=== PATIENT | male | born 1960 | race Caucasian/White ===

== ENCOUNTER 2016-08-11 08:59 | Observation (INO) | payer MEDICARE, OTHER ==
[~2016-08-11] VITALS: Ht 182.9 cm; Wt 90.0 kg
[~2016-08-11 08:59] MED LIST: FURO-110 PO
[2016-08-11 09:07] VITALS: Ht 182.9 cm; Wt 90.0 kg
[2016-08-11] MEDS ORDERED: NITROGLYCERIN 2% 1 GM OINT PKT TD STA (09:09)
[2016-08-11 09:55] LABS: ADD SCAN DIFF NO
[2016-08-11 09:57] LABS: BASOPHIL # 0.1 10^3/ul (0.0-0.1); BASOPHILS % 1.3 % (0.0-2.0); EOSINOPHILS # 0.5 10^3/ul (0.0-0.5); EOSINOPHILS % 7.7 % (0.0-7.0); HEMATOCRIT 48.7 % (42.0-52.0); HEMOGLOBIN 16.3 g/dl (14.0-18.0); LYMPHOCYTES # 1.9 10^3/ul (0.8-2.9); LYMPHOCYTES % 28.6 % (15.0-51.0); MEAN CORPUSCULAR HEMOGLOBIN 29.5 pg (29.0-33.0); MEAN CORPUSCULAR HGB CONC 33.5 g/dl (32.0-37.0); MEAN CORPUSCULAR VOLUME 88.1 fl (82.0-101.0); MEAN PLATELET VOLUME 9.9 fl (7.4-10.4); MONOCYTE # 0.6 10^3/ul (0.3-0.9); MONOCYTES % 9.5 % (0.0-11.0); NEUTROPHIL # 3.5 10^3/ul (1.6-7.5); NEUTROPHILS % 52.2 % (39.0-77.0); PLATELET COUNT 227 10^3/UL (140-415); RED BLOOD COUNT 5.53 10^6/ul (4.70-6.10); RED CELL DISTRIBUTION WIDTH 12.9 % (11.5-14.5); WHITE BLOOD COUNT 6.7 10^3/ul (4.8-10.8)
--- NOTE | 2016-08-11 10:10 | RADRPT ---
PROCEDURE: XR Chest. CLINICAL INDICATION: Chest pain TECHNIQUE: Chest AP portable. COMPARISON: 09/20/2015 FINDINGS: The mediastinal structures are unremarkable. The heart is normal in size and configuration. The pu lmonary vascularity is normal. The lung mello are unremarkable. No consolidation is identified. The pleural spaces are unremarkable. The axial skeleton is unremarkable. IMPRESSION: No active intrathoracic disease. RPTAT: HGDB .Yimi Blum MD, MD Date Time Electronically viewed and signed by .Yimi Blum MD, on 08/11/2016 10:10 .B/
[2016-08-11 10:15] LABS: CHLORIDE 102 mmol/L (97-110); SODIUM 139 mmol/L (135-144)
[2016-08-11 10:16] LABS: POTASSIUM 4.1 mmol/L (3.5-5.1)
[2016-08-11 10:19] LABS: ANION GAP 13 (8-16); BLOOD UREA NITROGEN 12 mg/dl (7-20); CARBON DIOXIDE 28 mmol/L (21-31); GLUCOSE 281 mg/dl (70-220)
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
[2016-08-11 10:37] LABS: PARTIAL THROMBOPLASTIN TIME 24.9 Sec (25.0-35.0); PROTIME 13.2 Sec (12.2-14.2)
[2016-08-11 10:43] LABS: TROPONIN-I < 0.012 ng/ml (0.00-0.12)
[2016-08-11] MEDS ORDERED: ACETAMINOPHEN 325 MG TAB PO PRN (11:30)
[2016-08-11] MEDS ORDERED: ONDANSETRON 4 MG INJ IV PRN (11:30)
--- NOTE | 2016-08-11 14:49 | HP ---
Date/Time of Note Date/Time of Note DATE: 08/11/16 TIME: 14:44 Assessment/Plan VTE Prophylaxis VTE Prophylaxis Intervention: LMWH Lines/Catheters IV Catheter Type (from Nrs): Peripheral IV Assessment/Plan Assessment/Plan 55-year-old homeless male with the followin. Chest pain rule out acute coronary syndrome 2. Hyperglycemia rule out type 2 diabetes 3. Chronic tobacco abuse Plan: Telemetry admission, trend cardiac enzymes, 2d echo if none recently and possible cardiology consult for stress test. oxygen and nitroglycerin therapy as needed. Daily plavix 2/2 asa allergy Get lipid profile, magnesium and TSH levels in am. Further interventions per clinical course We will will also provide supportive care. Prophylaxis: Lovenox, PPI. HPI/ROS Admit Date/Time Admit Date/Time 08/11/16 Hx of Present Illness PRESENTING COMPLAINT: chest pain HISTORY OF PRESENTING COMPLAINT: This is a 55-year-old male who presents to emergency room with complaints of chest pain, shortness of breath and generalized body shakes. Patient states symptoms have been going on for just about a day. Patient of note is homeless. Patient states symptoms improved with medications given in the ER. He denies cough. Patient states chest pain radiates to his left shoulder. He denies fever, abdominal pain, black stools, blood in his stool. Patient is a chronic smoker. He has had episodes of bronchitis in the past ROS 12 point review if systems was done and pertinent findings are as noted. PMH/Family/Social Past Medical History * Bronchitis hard of hearing right ear Past Surgical History Past Surgical Hx: appendectomy, other Family History Significant Family History: no pertinent family hx Social History Alcohol Use: none Smoking Status: Light tobacco smoker Drug Use: none Exam/Review of Systems Vital Signs Vitals Vital Signs Date Time Temp Pulse Resp B/P Pulse Ox O2 Delivery O2 Flow Rate FiO2 08/11/16 13:31 75 22 136/83 95 Room Air 08/11/16 09:07 98.1 Exam Exam Constitutional: alert, other (obese) Psych: anxiety Head: normocephalic, atraumatic Eyes: nl conjunctiva, EOMI, nl lids ENMT: nl external ears & nose Neck: other (Short and obese. Unable to visualize any neck veins.) Respiratory: diminished breath sounds, labored breathing, wheezing Cardiovascular: regular rate and rhythm, other (sinus tachycardia) Gastrointestinal: soft, non-tender, bowel sounds Musculoskeletal: nl extremities to inspection Extremities: edema (bilateral lower extremity), other (bilateral lower extremity diminished pedal pulses) Neurological: CRUISE DIRECTOR II-XII intact, nl mental status, nl speech Labs Result Diagram: 08/11/1642 08/11/1642 Procedures Procedures Laboratory Tests Test 08/11/16 09:42 White Blood Count 6.710^3/ul Red Blood Count 5.5310^6/ul Hemoglobin 16.3g/dl Hematocrit 48.7% Mean Corpuscular Volume 88.1fl Mean Corpuscular Hemoglobin 29.5pg Mean Corpuscular Hemoglobin Concent 33.5g/dl Red Cell Distribution Width 12.9% Platelet Count 92268^3/UL Mean Platelet Volume 9.9fl Neutrophils % 52.2% Lymphocytes % 28.6% Monocytes % 9.5% Eosinophils % 7.7% Basophils % 1.3% Nucleated Red Blood Cells % 0.0/100WBC Neutrophils # 3.510^3/ul Lymphocytes # 1.910^3/ul Monocytes # 0.610^3/ul Eosinophils # 0.510^3/ul Basophils # 0.110^3/ul Nucleated Red Blood Cells # 0.010^3/ul Prothrombin Time 13.2Sec Prothrombin Time Ratio 1.0 INR International Normalized Ratio 1.00 Activated Partial Thromboplast Time 24.9Sec Sodium Level 139mmol/L Potassium Level 4.1mmol/L Chloride Level 102mmol/L Carbon Dioxide Level 28mmol/L Anion Gap 13 Blood Urea Nitrogen 12mg/dl Creatinine 0.60mg/dl Glucose Level 281mg/dl Calcium Level 9.0mg/dl Troponin I < 0.012ng/ml Current Medications Medications (Trade) Dose Ordered Sig/Chuck Route PRN Reason Start Time Stop Time Status Last Admin Dose Admin Nitroglycerin (Nitroglycerin 2% Oint) 1 inch ONCE STAT TD 08/11/16 09:09 08/11/16 09:12 DC 08/11/16 09:47 1 INCH Ondansetron HCl (Zofran Inj) 4 mg ER BRIDGE PRN IV NAUSEA AND/OR VOMITING 08/11/16 11:30 08/12/16 11:29 Acetaminophen (Tylenol Tab) 650 mg ER BRIDGE PRN PO MILD PAIN/FEVER 08/11/16 11:30 08/12/16 11:29 PROCEDURE: XR Chest. CLINICAL INDICATION: Chest pain TECHNIQUE: Chest AP portable. COMPARISON: 09/20/2015 FINDINGS: The mediastinal structures are unremarkable. The heart is normal in size and configuration. The pulmonary vascularity is normal. The lung mello are unremarkable. No consolidation is identified. The pleural spaces are unremarkable. The axial skeleton is unremarkable. IMPRESSION: No active intrathoracic disease. RPTAT: HGDB .Yimi Blum MD, Date Time Electronically viewed and signed by .Yimi Blum MD, on 08/11/2016 10:10 .B/ I reviewed EKG Rate: Within normal limits Rhythm: sinus Note: No ST elevation or depressions noted concerning for acute ischemic event. MARU TRIPATHI August 11, 2016 14:49
[2016-08-11] MEDS ORDERED: CLOPIDOGREL 75 MG TAB PO ONE (15:00)
[2016-08-11] MEDS ORDERED: NITROGLYCERIN (SL) 0.4 MG TAB SL PRN (15:00)
[2016-08-11] MEDS ORDERED: HYDROCODONE/APAP (5/325) TAB PO PRN (15:00)
[2016-08-11 15:33] LABS: CREATINE KINASE 62 IU/L (23-200)
[2016-08-11 15:35] LABS: BARBITURATES Negative (NEGATIVE); BENZODIAZEPINES Negative (NEGATIVE); CANNABINOIDS Negative (NEGATIVE); COCAINE Negative (NEGATIVE); OPIATES Negative (NEGATIVE)
[2016-08-11] MEDS ORDERED: DEXTROSE 50% 50 ML SYRINGE IV PRN ×2 (16:00)
[2016-08-11] MEDS ORDERED: GLUCOSE GEL 15 GRAM TUBE PO PRN ×2 (16:00)
[2016-08-11] MEDS ORDERED: GLUCAGON 1 MG INJ IM PRN (16:00)
[2016-08-11] MEDS ORDERED: GLUCOSE GEL 15 GRAM TUBE BUCCAL PRN (16:00)
[2016-08-11 16:05] LABS: CK-MB 1.81 ng/ml (0.0-2.4); TROPONIN-I < 0.012 ng/ml (0.00-0.12)
--- NOTE | 2016-08-11 17:35 | RADRPT ---
Echocardiogram Report Patient Name: IRVIN RICHARDSON Gender: Male Date: 1960 Study Date: 11-Aug-2016 Space Operations Officer: Manju Horn FABBY Location: [facility] Ref. Physician: MARU TRIPATHI Quality: Adequate Procedures: Transthoracic echocardiogram with complete 2D, M-Mode, and doppler examination. Indications: Chest Pain. 2D/M Mode Doppler Measurement Value Normal Ranges Measurement Value Normal Ranges LVIDd 2D 4.2 3.5 - 5.6 cm AV Peak Juan Manuel 1.4 m/sec LVIDs 2D 2.2 2.1 - 4.1 cm AV Peak PG 7.5 mmHg LVPWd 2D 1.3 0.6 - 1.1 cm LVOT Peak Juan Manuel 1.0 m/sec IVSd 2D 1.2 0.6 - 1.1 cm LVOT Peak PG 3.9 mmHg AoR Diam 2D 3.0 2.0 - 3.7 cm MV E Peak Juan Manuel 0.5 m/sec EDV 2D 80.1 cm3 MV A Peak Juan Manuel 0.6 m/sec ESV 2D 11.0 cm3 MV E/A 0.8 LA Dimen 2D 3.0 2.3 - 4.0 cm MV Decel Time 146 msec MV Decel [place] 3 MV E/A 0.8 TR Peak Juan Manuel 2.2 m/sec TR Peak PG 18.9 mmHg RVSP 27.0 mmHg Findings Left Ventricle: Normal left ventricular systolic function. Normal left ventricular cavity size. Mild concentric left ventricular hypertrophy. Ejection fraction is visually estimated at 60 %. Tissue Doppler/Mitral Doppler indices are consistent with impaired relaxation (Stage I diastolic dysfunction). Right Ventricle: Normal right ventricular size. Normal right ventricular systolic function. Left Atrium: The left atrium is normal in size. Right Atrium: The right atrium is normal in size. Mitral Valve: Normal appearance of the mitral valve. Mild mitral annular calcification. No mitral valve regurgitation is seen. Aortic Valve: No significant aortic stenosis or insufficiency. Aortic cusps appear mildly calcified. Tricuspid Valve: Normal appearance and function of the tricuspid valve with trace physiologic regurgitation. Estimated peak PA systolic pressure 27 mmHg. Pulmonic Valve: Normal pulmonic valve appearance. Pericardium: Normal pericardium with no significant pericardial effusion. Aorta: Normal aortic root. IVC: Normal size and no respiratory collapse consistent with elevated right atrial pressure. Conclusions Normal left ventricular systolic function. Normal left ventricular cavity size. Mild concentric left ventricular hypertrophy. Ejection fraction is visually estimated at 60 %. Tissue Doppler/Mitral Doppler indices are consistent with impaired relaxation (Stage I diastolic dysfunction). Normal right ventricular size. Normal right ventricular systolic function. The left atrium is normal in size. The right atrium is normal in size. No significant valvular stenosis or regurgitation seen. Normal pericardium with no significant pericardial effusion. Electronically Signed By: Angel Calles 11-Aug-2016 17:35:11 -0700 Patient Name: IRVIN RICHARDSON Study Date: 11-Aug-2016 [id number]
[2016-08-11 17:46] VITALS: PULSE 81
[2016-08-11] MEDS: INSULIN ASPART [NOVOLOG] 3 ML PEN SC SCH ×2 (17:55→21:00)
[2016-08-11 20:06] VITALS: PULSE 85
[2016-08-11 20:12] VITALS: BP 139/83; RESP 20
[2016-08-11] MEDS: DOCUSATE SODIUM 100 MG CAP PO SCH (21:00)
[2016-08-11 21:41] LABS: CREATINE KINASE 55 IU/L (23-200)
[2016-08-11 21:59] LABS: CK-MB 1.37 ng/ml (0.0-2.4); TROPONIN-I < 0.012 ng/ml (0.00-0.12)
[2016-08-11 23:41] VITALS: BP 133/80; RESP 20
[2016-08-12] VITALS (7 sets, daily range): BP systolic 113–131; BP diastolic 60–74; PULSE 83–95; RESP 18–19
[2016-08-12] MEDS ORDERED: PANTOPRAZOLE (EC) 40 MG TAB PO SCH (06:00)
[2016-08-12] MEDS: INSULIN ASPART [NOVOLOG] 3 ML PEN SC SCH ×2 (07:42→11:50)
[2016-08-12] MEDS ORDERED: ENOXAPARIN 40 MG/0.4 ML SYG SC SCH (09:00)
[2016-08-12] MEDS: DOCUSATE SODIUM 100 MG CAP PO SCH (09:00)
[2016-08-12] MEDS ORDERED: CLOPIDOGREL 75 MG TAB PO SCH (09:00)
[2016-08-12 10:03] LABS: ADD SCAN DIFF NO
[2016-08-12 10:14] LABS: BASOPHIL # 0.1 10^3/ul (0.0-0.1); BASOPHILS % 0.6 % (0.0-2.0); EOSINOPHILS # 0.4 10^3/ul (0.0-0.5); EOSINOPHILS % 3.5 % (0.0-7.0); HEMATOCRIT 46.9 % (42.0-52.0); HEMOGLOBIN 15.8 g/dl (14.0-18.0); LYMPHOCYTES # 2.4 10^3/ul (0.8-2.9); LYMPHOCYTES % 21.8 % (15.0-51.0); MEAN CORPUSCULAR HEMOGLOBIN 29.5 pg (29.0-33.0); MEAN CORPUSCULAR HGB CONC 33.7 g/dl (32.0-37.0); MEAN CORPUSCULAR VOLUME 87.5 fl (82.0-101.0); MEAN PLATELET VOLUME 9.9 fl (7.4-10.4); MONOCYTE # 0.9 10^3/ul (0.3-0.9); MONOCYTES % 8.1 % (0.0-11.0); NEUTROPHIL # 7.2 10^3/ul (1.6-7.5); NEUTROPHILS % 65.6 % (39.0-77.0); PLATELET COUNT 241 10^3/UL (140-415); RED BLOOD COUNT 5.36 10^6/ul (4.70-6.10); RED CELL DISTRIBUTION WIDTH 12.9 % (11.5-14.5)
[2016-08-12 10:26] LABS: ALBUMIN 3.2 g/dl (3.3-4.9); BILIRUBIN,INDIRECT 0.6 mg/dl (0-1.1); BILIRUBIN,TOTAL 0.6 mg/dl (0.2-1.3); CALCIUM 8.9 mg/dl (8.4-10.2); CHOL/HDL RATIO 3.7 RATIO; CREATININE 0.62 mg/dl (0.61-1.24); MAGNESIUM 1.7 mg/dl (1.7-2.5); POTASSIUM 4.6 mmol/L (3.5-5.1); TOTAL PROTEIN 6.2 g/dl (6.1-8.1)
[2016-08-12 11:01] LABS: THYROID STIMULATING HORMONE 0.716 MIU/L (0.465-4.680)
--- NOTE | 2016-08-12 12:42 | PN ---
Date/Time of Note Date/Time of Note DATE: 08/12/16 TIME: 12:40 Assessment/Plan VTE Prophylaxis VTE Prophylaxis Intervention: LMWH Lines/Catheters IV [facility]ter Type (from [facility]): Saline Lock Urinary Cath still in place: No Assessment/Plan Assessment/Plan 1. Chest pain rule out acute coronary syndrome- work up negative for ACS so far 2. Hyperglycemia rule out type 2 diabetes 3. Chronic tobacco abuse Plan: Telemetry admission, trend cardiac enzymes, 2d echo if none recently and possible cardiology consult for stress test. oxygen and nitroglycerin therapy as needed. 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 Subjective 24 Hr Interval Summary Free Text/Dictation no chest pain BP stable Exam/Review of Systems Vital Signs Vitals Vital Signs Date Time Temp Pulse Resp B/P Pulse Ox O2 Delivery O2 Flow Rate FiO2 08/12/16 12:05 83 08/12/16 11:44 98.0 18 124/69 98 08/11/16 17:06 Room Air Intake and Output 08/11/16 08/11/16 08/12/16 15:00 23:00 07:00 Intake Total 800 ml Balance 800 ml Exam Exam Constitutional: alert, other (obese) Psych: anxiety Head: normocephalic, atraumatic Eyes: nl conjunctiva, EOMI, nl lids ENMT: nl external ears & nose Neck: other (Short and obese. Unable to visualize any neck veins.) Respiratory: diminished breath sounds, labored breathing, wheezing Cardiovascular: regular rate and rhythm, other (sinus tachycardia) Gastrointestinal: soft, non-tender, bowel sounds Musculoskeletal: nl extremities to inspection Extremities: edema (bilateral lower extremity), other (bilateral lower extremity diminished pedal pulses) Neurological: PIANO REGULATOR INSPECTOR II-XII intact, nl mental status, nl speech Results Result Diagram: 08/12/16 0958 08/12/16 0958 Results 24 hrs Laboratory Tests Test 08/11/16 15:05 08/11/16 18:28 08/11/16 21:10 08/11/16 21:15 Creatine Kinase 62 55 Creatine Kinase Index 2.9 2.5 Creatinine Kinase MB (Mass) 1.81 1.37 Troponin I < 0.012 < 0.012 Urine Opiates Screen Negative Urine Barbiturates Negative Urine Amphetamines Screen Negative Urine Benzodiazepines Screen Negative Urine Cocaine Screen Negative Urine Cannabinoids Negative Bedside Glucose 231 H 204 Test 08/12/16 07:38 08/12/16 09:58 Bedside Glucose 213 White Blood Count 11.0 #H Red Blood Count 5.36 Hemoglobin 15.8 Hematocrit 46.9 Mean Corpuscular Volume 87.5 Mean Corpuscular Hemoglobin 29.5 Mean Corpuscular Hemoglobin Concent 33.7 Red Cell Distribution Width 12.9 Platelet Count 241 Mean Platelet Volume 9.9 Neutrophils % 65.6 Lymphocytes % 21.8 Monocytes % 8.1 Eosinophils % 3.5 Basophils % 0.6 Nucleated Red Blood Cells % 0.0 Neutrophils # 7.2 Lymphocytes # 2.4 Monocytes # 0.9 Eosinophils # 0.4 Basophils # 0.1 Nucleated Red Blood Cells # 0.0 Sodium Level 132 L Potassium Level 4.6 Chloride Level 100 Carbon Dioxide Level 29 Anion Gap 8 Blood Urea Nitrogen 10 Creatinine 0.62 Glucose Level 223 H Hemoglobin A1c 9.4 H Calcium Level 8.9 Magnesium Level 1.7 Total Bilirubin 0.6 Direct Bilirubin 0.00 Indirect Bilirubin 0.6 Aspartate Amino Transf (AST/SGOT) 16 Alanine Aminotransferase (ALT/SGPT) 22 Alkaline Phosphatase 59 Total Protein 6.2 Albumin 3.2 L Triglycerides Level 90 Cholesterol Level 154 LDL Cholesterol, Calculated 95 HDL Cholesterol 41 Cholesterol/HDL Ratio 3.7 Thyroid Stimulating Hormone (TSH) 0.716 Medications Medications Current Medications Clopidogrel Bisulfate (plaVIX) 75 mg DAILY PO Last administered on 08/12/16 09 :28; Admin Dose 75 MG; Start 08/12/16 at 09:00 Enoxaparin Sodium (Lovenox) 40 mg DAILY SC ; Start 08/12/16 at 09:00 Docusate Sodium (Colace) 100 mg BID PO ; Start 08/11/16 at 21:00 Pantoprazole (Protonix Tab) 40 mg DAILY@06 PO ; Start 08/12/16 at 06:00 Acetaminophen/ Hydrocodone Bitart ([place] (5/325)) 1 tab Q6H PRN PO pain; Start 08/11/16 at 15:00 Nitroglycerin (Nitroglycerin (Sl Tab) 0.4 Mg) 1 tab Q5M PRN SL ANGINA; Start at 15:00 Miscellaneous Information 1 ea NOTE XX ; Start 08/11/16 at 16:00 Glucose (Glutose) 15 gm Q15M PRN PO DECREASED GLUCOSE; Start 08/11/16 at 16:00 Glucose (Glutose) 22.5 gm Q15M PRN PO DECREASED GLUCOSE; Start 08/11/16 at 16: 00 Dextrose (D50w Syringe) 25 ml Q15M PRN IV DECREASED GLUCOSE; Start 08/11/16 at 16:00 Dextrose (D50w Syringe) 50 ml Q15M PRN IV DECREASED GLUCOSE; Start 08/11/16 at 16:00 Glucagon (Glucagen) 1 mg Q15M PRN IM DECREASED GLUCOSE; Start 08/11/16 at 16:00 Glucose (Glutose) 15 gm Q15M PRN BUCCAL DECREASED GLUCOSE; Start 08/11/16 at 16 :00 FABI TAFOYA MD August 12, 2016 12:41
[2016-08-12] MEDS ORDERED: CLOP75TA28 PO (12:43)
--- NOTE | 2016-08-12 12:43 | PDOCDIS ---
Discharge Instructions CONDITION Patient Condition: Good HOME CARE INSTRUCTIONS: Special Diet: 1800 ada ACTIVITY: Activity Restrictions: Slowly Increase Activity Rest between Activity Avoid heavy lifting Avoid Heavy Housework FOLLOW UP/APPOINTMENTS Appointments follow up with his own PMD in 1-2 week. FABI TAFOYA MD August 12, 2016 12:43
== END 2016-08-12 14:05 | disposition home or self-care (01) ==
LOC: E/R 08:59 → TEL 11:15
PROVIDERS: ADMIT Internal Medicine; ATTEND Internal Medicine
DX: R07.9 Chest pain, unspecified (principal); E11.65 Type 2 diabetes mellitus with hyperglycemia; F17.200 Nicotine dependence, unspecified, uncomplicated
CPT/HCPCS: 36415; 71010; 80048; 80061; 80076; 80307; 82550; 82553; 82962; 83036; 83735; 84443; 84484; 85025; 85610; 85730; 93005; 93306; 99285; G0378; J1815; J1650

== ENCOUNTER 2016-10-05 22:13 | Emergency (ER) | payer MEDICARE, OTHER ==
[~2016-10-05] VITALS: Ht 177.8 cm; Wt 85.0 kg
[2016-10-05 22:33] VITALS: Ht 177.8 cm; Wt 85.0 kg
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
[2016-10-05] MEDS ORDERED: TRAM50TA2 PO (23:41)
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
[2016-10-06] MEDS ORDERED: LIDOCAINE 2%/EPI MPF (SDV) 20 ML VIAL INJ ONE
[2016-10-06 01:05] VITALS: BP 132/81; PULSE 91; RESP 16; TEMP 98.1
== END 2016-10-06 01:05 | disposition home or self-care (01) ==
LOC: E/R 22:13
DX: S01.81XA Laceration without foreign body of other part of head, initial encounter (principal); F17.210 Nicotine dependence, cigarettes, uncomplicated; X99.0XXA Assault by sharp glass, initial encounter; Y92.511 Restaurant or cafe as the place of occurrence of the external cause
CPT/HCPCS: 70450

== ENCOUNTER 2016-10-24 10:09 | Emergency (ER) | payer MEDICARE, OTHER ==
[~2016-10-24] VITALS: Ht 167.6 cm; Wt 111.5 kg
[~2016-10-24 10:09] MED LIST changes: -FURO-110 PO; +TRAM50TA2 PO
[2016-10-24 10:11] VITALS: Ht 167.6 cm; Wt 111.5 kg
--- NOTE | 2016-10-24 10:43 | ERD ---
ER Documentation Chief Complaint Date/Time DATE: 10/24/16 TIME: 10:39 Chief Complaint Suture reomoval, sutures placed a month ago HPI 56-year-old male present ED for suture removal. Patient had suture placed on his right forehead on 10/05/2016. States that he was told to have suture removal in 2 weeks. Denies fever or chills. Denies pain, erythema, swelling, or drainage of the wound. ROS All systems reviewed and are negative except as per history of present illness. Medications Home Meds Active Scripts Tramadol HCl (Tramadol HCl) 50 Mg Tablet, 50 MG PO Q6, #15 TAB Prov:MARION BRANDT DO 10/05/16 Allergies Allergies: Coded Allergies: aspirin (Verified Allergy, Unknown, 10/24/16) penicillin (Verified Allergy, Unknown, 10/24/16) PMhx/Soc History of Surgery: Yes (appy, hernia repair) Anesthesia Reaction: No Hx Neurological Disorder: No Hx Respiratory Disorders: No Hx Cardiac Disorders: No Hx Psychiatric Problems: No Hx Miscellaneous Medical Probl: Yes (previous head injury) Hx Alcohol Use: No (denies) Hx Substance Use: No (denies) Hx Tobacco Use: Yes Smoking Status: Current every day smoker Physical Exam Vitals Vital Signs Date Time Temp Pulse Resp B/P Pulse Ox O2 Delivery O2 Flow Rate FiO2 10/24/16 10:11 98.3 93 20 140/73 96 Physical Exam General: Well-developed, well-nourished, conscious and coherent, in no distress Skin: Warm and dry without rash, good texture and turgor. Suturing noted on the right forehead, no periwound erythema, swelling, or exudate. Head: Normocephalic without evidence of trauma Eyes: Sclera and conjunctivae normal; pupils equal, round, and reactive to light; extraocular movements are intact Chest: Normal AP diameter. Good expansion without retractions. Nontender. Lungs are clear to auscultate bilaterally with good tidal volume Heart: Regular rate and rhythm. No murmur, rub, or gallops heard Extremities: Full range of motion. Good strength bilaterally. No clubbing, cyanosis, or edema. Peripheral pulses are intact. Sensation intact Neuro: Alert and oriented 4, GCS 15. Cranial nerves grossly intact. Motor and sensory exams nonfocal. Moves all extremities. Speech clear. Gait normal Procedures/MDM Suture Removal by me: Sutures removed with tweezers and scissors without incident. Wound shows no evidence of infection, foreign body, neurologic injury, vascular injury, open joint or tendon laceration. Patient to follow up PRN. Disclaimer: Inadvertent spelling and grammatical errors are likely due to EHR/ dictation software use and do not reflect on the overall quality of patient care. Also, please note that the electronic time recorded on this note does not necessarily reflect the actual time of the patient encounter. Departure Diagnosis: Primary Impression: Encounter for removal of sutures Condition: Good Patient Instructions: Suture Removal, No Complication Referrals: [facility] YOU HAVE RECEIVED A MEDICAL SCREENING EXAM AND THE RESULTS INDICATE THAT YOU DO NOT HAVE A CONDITION THAT REQUIRES URGENT TREATMENT IN THE EMERGENCY DEPARTMENT. FURTHER EVALUATION AND TREATMENT OF YOUR CONDITION CAN WAIT UNTIL YOU ARE SEEN IN YOUR DOCTORS OFFICE WITHIN THE NEXT 1-2 DAYS. IT IS YOUR RESPONSIBILITY TO MAKE AN APPOINTMENT FOR FOLOW-UP CARE. IF YOU HAVE A PRIMARY DOCTOR --you should call your primary doctor and schedule an appointment IF YOU DO NOT HAVE A PRIMARY DOCTOR YOU CAN CALL OUR PHYSICIAN REFERRAL HOTLINE AT IF YOU CAN NOT AFFORD TO SEE A PHYSICIAN YOU CAN CHOSE FROM THE FOLLOWING [facility] [address] [place]. [facility] [address] [facility] [address] [facility] [address] [facility] [facility]. [facility] [address] [facility]. [facility]. [address] Additional Instructions: Follow up with your primary provider as needed. EDUARDO DALE NP Oct 24, 2016 10:43
== END 2016-10-24 11:06 | disposition home or self-care (01) ==
LOC: FTE 10:09
DX: Z48.02 Encounter for removal of sutures (principal); F17.210 Nicotine dependence, cigarettes, uncomplicated
CPT/HCPCS: 99281

== ENCOUNTER 2017-03-30 23:50 | Emergency (ER) | END 2017-03-31 04:34 | disposition home or self-care (01) ==

== ENCOUNTER 2017-06-13 00:28 | Emergency (ER) | END 2017-06-13 04:09 | disposition home or self-care (01) ==

== ENCOUNTER 2017-11-05 10:06 | Emergency (ER) | END 2017-11-05 12:20 | disposition home or self-care (01) ==

== ENCOUNTER 2017-12-11 21:00 | Inpatient (IN) | END 2017-12-15 13:10 | disposition home or self-care (01) | DRG 388 ==